=== PATIENT | male | born 1995 | race Caucasian/White ===

== ENCOUNTER 2020-10-03 07:23 | Outpatient (CLI) | payer OTHER, SELFPAY ==
--- NOTE | ~2020-10-03 | MR_ITS ---
EXAMINATION: MR brain/brain stem wo/w con DATE: 10/03/2020 09:51 INDICATION: Headache. Neurofibromatosis. TECHNIQUE: Magnetic resonance imaging (MRI) of the brain and brainstem was performed without and with 19 mL MultiHance intravenous contrast. Sequences included sagittal and axial T1-weighted FSE, axial diffusion-weighted FS EPI, axial T2*-weighted GRE, axial T2-weighted FLAIR Propeller, and axial T2-we ighted Propeller. Postcontrast sequences included axial and coronal T1-weighted FSE. Apparent diffusi on coefficient (ADC) maps were created. COMPARISON: None. FINDINGS: In the left frontal lobe deep white matter, there is a 3 mm focus of contrast enhancement s urrounded by increased T2-weighted signal intensity measuring 1.8 cm. There is no acute ischemic infa rct or intracranial hemorrhage. The ventricles are normal in size. There is near complete opacificati on of the right frontal and anterior ethmoid sinuses. Right ocular globe is absent. The mastoid air c ells are normal. IMPRESSION: 1. 3 mm focus of contrast enhancement in the left frontal lobe deep white matter with surrounding inc reased T2-weighted signal intensity suspicious for glioma. Reviewed, dictated and finalized at location B. IMPRESSION: 1. 3 mm focus of contrast enhancement in the left frontal lobe deep white matte r with surrounding increased T2-weighted signal intensity suspicious for glioma .
[2020-10-03 08:26] LABS: Estimated Glomerular Filt Rate > 60
== END 2020-10-03 07:24 ==
PROVIDERS: PCP Internal Medicine; Visit Provider Internal Medicine
DX: Q85.00 Neurofibromatosis, unspecified (principal); R51.9 Headache, unspecified; R93.0 Abnormal findings on diagnostic imaging of skull and head, not elsewhere classified
CPT/HCPCS: 70553; A9577

== ENCOUNTER → 2021-05-16 10:42 | Outpatient (CLI) | payer OTHER, SELFPAY ==
--- NOTE | ~2021-05-16 | MR_ITS ---
EXAMINATION: MR brain/brain stem wo/w con DATE: 05/16/2021 11:37 INDICATION: Brain lesion. Neurofibromatosis. TECHNIQUE: Magnetic resonance imaging (MRI) of the brain and brainstem was performed without and with 20 mL MultiHance intravenous contrast. Sequences included sagittal and axial T1-weighted FSE, axial diffusion-weighted FS EPI, axial T2*-weighted GRE, axial T2-weighted FLAIR Propeller, and axial T2-we ighted Propeller. Postcontrast sequences included axial and coronal T1-weighted FSE. Apparent diffusi on coefficient (ADC) maps were created. COMPARISON: Brain MRI 10/03/2020 FINDINGS: In the left frontal lobe deep white matter, there is a 4 mm focus of contrast enhancement s urrounded by increased T2-weighted signal intensity measuring 1.8 cm. There is no acute ischemic infa rct or intracranial hemorrhage. The ventricles are normal in size. There is complete opacification of right frontal sinus and some of the right anterior ethmoid air cells. There is mild mucosal thickeni ng in right maxillary sinus. Right ocular globe is absent. The mastoid air cells are normal. IMPRESSION: 1. Stable left frontal lobe lesion suspicious for glioma. Reviewed, dictated and finalized at location A.
[2021-05-16 11:15] LABS: Estimated Glomerular Filt Rate > 60
== END ==
PROVIDERS: PCP Internal Medicine
DX: G93.9 Disorder of brain, unspecified (principal)
CPT/HCPCS: 70553; A9577

== ENCOUNTER 2022-01-25 10:10 | Emergency (ER) | payer OTHER, SELFPAY ==
[2022-01-25 11:09] VITALS: BP 125/97; PULSE 73; RESP 18; TEMP 36.7; O2SAT 100
--- NOTE | 2022-01-25 12:09 | ED.URI ---
HPI - URI/Sore Throat General Chief Complaint: Upper Respiratory Infection Stated Complaint: congestion,chills,cough Source: patient and family (mother) History of Present Illness HPI Narrative: 26-year-old male presents to [facility] accompanied by his mother for complaints of congestion, chills, body ache, fatigue, cough and bilateral ear pain for the past 2 days. Patient reports that his father and coworkers recent similar symptoms. Patient has been taking [id number] sinus medication and Motrin with minimal relief. Patient is a nonsmoker. Patient denies recent travel. MD elicited complaint: cough, rhinorrhea and nasal congestion Onset (ago): day(s) (2) Able to tolerate fluids by mouth: Yes Context: sick contacts (father and coworker ) Treatments prior to arrival: cold medicine Related Data Home Medications Medication Instructions Recorded Confirmed levetiracetam 500 mg 500 mg PO DAILY 10/23/21 01/25/22 tablet,extended release 24 hr Allergies Allergy/AdvReac Type Severity Reaction Status Date / Time Pertussis Vaccines AdvReac Severe Agitated Verified 01/25/22 11:38 Review of Systems Constitutional: Constitutional: Reports chills, Reports fatigue and Denies fever(s) ENT: Denies dysphagia, Denies vertigo, Denies dizziness, Denies epistaxis, Reports nasal congestion and Denies sore throat Respiratory: Respiratory: Reports cough, Denies dyspnea and Denies wheezing Gastrointestinal: Gastrointestinal: Denies diarrhea, Denies nausea and Denies vomiting Integumentary/Breasts: Skin/Breast: Denies rash Neurologic: Denies vertigo and Denies dizziness Allergic/Immunologic: Allergic/Immunologic: Denies lip swelling, Denies throat swelling, Denies tongue swelling and Denies wheezing PMFSH Past Medical History Medical History Seizures Social History Social History Smoking status: Never smoker Alcohol intake: never Substance use: never Gender identity (if verbalized by the patient): Male Comments At time of signature, I agree with nursing past medical, surgical, social and family history. There is no relevant family history pertinent to the presenting complaint. Exam Const: General: healthy appearing, no acute distress and alert Nutritional Appearance: well nourished Orientation/consciousness: patient oriented x3 Limitations: no limitations HENMT: Ears: external ears normal and TM's normal bilaterally Face/Nose/Sinus: Normal external nose present and Normal nares present Face and sinus: normal facial exam and sinuses nontender Mouth: Yes Normal oral and palatal mucosa present, Yes lip normal and Yes moist mucous membranes Teeth and gingiva: dentition normal Throat: posterior oropharynx normal and uvula midline Neck: Neck: normal visual inspection Resp: Effort & Inspection: normal respiratory effort Auscultation: clear to auscultation bilaterally, no crackles, no rales and no rhonchi Cardio: Rate: regular rate Rhythm: regular rhythm Heart sounds: no murmurs Skin: General skin exam: normal color Rashes: no rashes Wounds: no wounds Neuro: General: patient oriented x3 Speech: normal speech Gait exam (Neuro): Normal gait present Psych: Affect: normal affect Attitude: cooperative Course Course Level of Care: [facility] Visit Vital Signs Vital signs: Vital Signs Temperature 36.7 C 01/25/22 11:09 Pulse Rate 73 01/25/22 11:09 Respiratory Rate 18 01/25/22 11:09 Blood Pressure 125/97 H 01/25/22 11:09 Pulse Oximetry 100 01/25/22 11:09 Oxygen Delivery Room Air 01/25/22 11:09 Temperature 36.7 C 01/25/22 11:09 Pulse Rate 73 01/25/22 11:09 Respiratory Rate 18 01/25/22 11:09 Blood Pressure 125/97 H 01/25/22 11:09 Pulse Oximetry 100 01/25/22 11:09 Oxygen Delivery Room Air 01/25/22 11:09 MDM - URI/Sore Throat MDM Narrative Me
== END 2022-01-25 12:35 | disposition home or self-care (01) ==
PROVIDERS: Emergency Provider Nurse Practitioner Family; PCP Physician Assistant Medical
DX: B34.9 Viral infection, unspecified (principal); G40.909 Epilepsy, unspecified, not intractable, without status epilepticus
CPT/HCPCS: 87804; 99213; G0463

== ENCOUNTER 2022-06-10 07:42 | Outpatient (CLI) | payer OTHER, SELFPAY ==
--- NOTE | ~2022-06-10 | MR_ITS ---
EXAMINATION: MR brain/brain stem wo/w con DATE: 06/10/2022 08:50 INDICATION: Brain lesion. Neurofibromatosis type I. TECHNIQUE: Magnetic resonance imaging (MRI) of the brain and brainstem was performed without and with 19 mL MultiHance intravenous contrast. COMPARISON: Brain MRI 05/16/2021, 10/03/2020 FINDINGS: There is no acute ischemic infarct. In the left frontal lobe deep white matter, there is a 2.0 cm mass of increased T2-weighted signal intensity. There is a 6 mm linear focus of contrast enhan cement in the mass. There is no intracranial hemorrhage. The ventricles are normal in size. There is complete opacification of the right frontal sinus and anterior right ethmoid sinuses. There is mild m ucosal thickening in right maxillary sinus. The mastoid air cells are normal. Right ocular globe is a bsent. There is chronic enlargement of the optic chiasm and hypothalamus without contrast enhancement . IMPRESSION: 1. Chronic enlargement of the optic chiasm and hypothalamus without contrast enhancement, consistent with a hypothalamic-optochiasmatic glioma. 2. 2.0 cm mass in the left frontal lobe, which measured 1.8 cm on 10/03/20. 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 Reviewed, dictated and finalized at location A. IMPRESSION: 1. Chronic enlargement of the optic chiasm and hypothalamus without contrast en hancement, consistent with a hypothalamic-optochiasmatic glioma. 2. 2.0 cm mass in the left frontal lobe, which measured 1.8 cm on 10/03/20. 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
== END 2022-06-10 07:43 ==
PROVIDERS: PCP Family Medicine
DX: G93.9 Disorder of brain, unspecified (principal)
CPT/HCPCS: 70553; A9577

== ENCOUNTER 2023-07-08 09:52 | Outpatient (CLI) | payer OTHER, SELFPAY ==
--- NOTE | ~2023-07-08 | MR_ITS ---
EXAMINATION: MR brain/brain stem wo/w con DATE: 07/08/2023 10:40 INDICATION: Brain tumor. Neurofibromatosis type 1. TECHNIQUE: Magnetic resonance imaging (MRI) of the brain and brainstem was performed without and with 18 mL MultiHance intravenous contrast. COMPARISON: Brain MRI 06/10/2022 FINDINGS: There is no acute ischemic infarct or intracranial hemorrhage. In the left frontal lobe, th ere is a 1.3 cm mass of increased T2-weighted signal intensity, decreased from 2.0 cm on 06/10/2022. E nhancement is no longer visualized in the mass. There is a new punctate focus of increased T2-weighte d signal intensity in the right frontoparietal deep white matter, which may be normal for the patient 's age. There is chronic enlargement of the optic chiasm and hypothalamus without contrast enhancemen t. There is complete opacification of right frontal sinus and the right anterior ethmoid sinuses. Rig ht ocular globe is absent. The mastoid air cells are normal. IMPRESSION: 1. Chronic enlargement of the optic chiasm and hypothalamus without contrast enhancement, consistent with a hypothalamic-optochiasmatic glioma. 2. 1.3 cm mass in the left frontal lobe with interval decrease in size and with resolution of contras t enhancement. This finding may be a focal area of signal intensity (FASI) or treated low-grade gliom a. Reviewed, dictated and finalized at location A. IMPRESSION: 1. Chronic enlargement of the optic chiasm and hypothalamus without contrast en hancement, consistent with a hypothalamic-optochiasmatic glioma. 2. 1.3 cm mass in the left frontal lobe with interval decrease in size and with resolution of contrast enhancement. This finding may be a focal area of signal intensity (FASI) or treated low-grade glioma.
== END 2023-07-08 09:53 ==
PROVIDERS: PCP Physician Assistant Medical
DX: D49.6 Neoplasm of unspecified behavior of brain (principal)
CPT/HCPCS: 70553; A9577

== ENCOUNTER 2024-07-03 09:45 | Outpatient (CLI) | payer OTHER, SELFPAY ==
--- NOTE | ~2024-07-03 | MR_ITS ---
MR brain/brain stem wo/w con Ordering provider: Sylvester Sanchez History: 28 years Male with . Brain tumor . Comparison: July 08, 2023 Technique: MRI brain was performed with and without contrast. 19 mL MultiHance was given IV. FINDINGS: BONES: Normal. CRANIOCERVICAL JUNCTION: normal. PITUITARY: Normal. MAJOR INTRACRANIAL VESSELS: Normal flow void. OPTIC NERVES AND CRANIAL NERVES VII AND VIII COMPLEXES: Grossly normal. Mass is seen in the area of the hypothalamus and optic chiasm with focal areas of T1 hyper intense si gnal areas unchanged from previous examination. Minimal enhancement seen in the postcontrast images. BRAIN PARENCHYMA AND CSF SPACES: focal area of T1, FLAIR and T2 hyperintense signal in the left fron sterling lobe is noted and appear unchanged from previous examination.Minimal enhancement seen in this are a. . T2 and FLAIR hyperintense signal areas are seen in the white matter of the parietal areas most l ikely nonspecific. Otherwise, The brainstem and cerebellum are normal. No acute or chronic intracrani al hemorrhage. No extra axial fluid collections. Diffusion weighted and ADC mapping images reveal no recent ischemia. No midline shift or mass effect. No abnormal contrast enhancement. PARANASAL SINUSES: Right frontal and ethmoidal sinus disease. Mucocele cannot be excluded. Absent right eye globe is noted. MASTOIDS: Normal SUPERFICIAL/SURROUNDING SOFT TISSUES: Multiple T2 hyperintense signal areas are seen in the subcutane ous tissues of the occipital area which may be a lymph nodes Normal. IMPRESSION: 1. Mass in the area of the optic chiasm and hypothalamus unchanged from previous examination. 2. Focal area of altered signal in the left frontal lobe unchanged from previous examination. 3. Right frontal and ethmoidal sinus disease. Mucocele is not excluded. Reviewed, dictated and finalized at location A. IMPRESSION: 1. Mass in the area of the optic chiasm and hypothalamus unchanged from previo us examination. 2. Focal area of altered signal in the left frontal lobe unchanged from previo us examination. 3. Right frontal and ethmoidal sinus disease. Mucocele is not excluded.
== END 2024-07-03 09:46 | disposition home or self-care (01) ==
PROVIDERS: PCP Physician Assistant Medical
DX: D49.6 Neoplasm of unspecified behavior of brain (principal); Q85.00 Neurofibromatosis, unspecified; J32.1 Chronic frontal sinusitis; J32.2 Chronic ethmoidal sinusitis
CPT/HCPCS: 70553; A9577